=== PATIENT | female | born 1990 | race Caucasian/White ===

== ENCOUNTER 2019-11-08 05:27 | Inpatient (IN) | payer OTHER ==
[~2019-11-08] VITALS: Ht 165.1 cm; Wt 100.0 kg
[2019-11-08] MEDS ORDERED: VITAFOL-OB+DHA1 EACH PO (06:32)
--- NOTE | 2019-11-08 08:34 | PR ---
[facility] [address], [place] [address] Signed Progress Notes IP Datetime Report Generated by CPN: 11/08/2019 08:34 PROGRESS NOTES: [id number] Impression: Normal progression of labor; Reassuring heart rate Procedures: Sterile Vag Exam Plan: Continue present management; Anticipate Vaginal Delivery VITAL SIGNS: [id number] EXAM: [id number] Dilatation: 9.5 Effacement: 95 Station: -1 Uterine Contractions: q 1-2 min MEMBRANES: [id number] Amniotic Fluid Color: Clear Comments: Called to patient's room as she had quickly progressed from 3-4 cm to 9.5 cm. Pt feeling pressure and urge to push. Anesthesia had been present to evaluate for epidural but patient declining neuraxial anesthesia as she is quickly progressing. Reviewed anticipated course of labor with patient. Will prepare for delivery. Fetus A: [id number] FHR Baseline: 130 Variability: Moderate 6-25bpm Accelerations: 15X15 Decelerations: None FHR Category: Category I Presentation: Vertex Comments on Fetus A: No evidence of metabolic acidosis Fetus B: [id number] Signing Physician: Sasha Salguero DO Copies: ~ *Electronically Signed* 11/08/19833 SASHA SALGUERO DO PATIENT NAME: MONIE PINEDO PROGRESS NOTE DATE OF : [birth year] PHYSICIAN: SASHA SALGUERO DO RPT #: [id number] REPORT IS CONFIDENTIAL AND NOT TO BE RELEASED WITHOUT AUTHORIZATION
--- NOTE | 2019-11-09 10:43 | PR ---
[facility] [address] [facility] [place], [place] [address] Signed PP Progress Notes Datetime Report Generated by IZZY: 11/09/2019 10:43 SUBJECTIVE: [id number] Pain: Within normal limits Vital Signs: [id number] Vital Signs: Reviewed; Within Normal Limits EXAM: [id number] Cardiovascular: Not Done Respiratory: Not Done Abdomen/Uterus: Abnormal Lochia: Normal Vulva/Perineum: Abnormal Breasts: Not Done CVA Tenderness: Not Done Extremities: Normal Incision: Not Applicable Progress: Abnormal Exam Comments: Fundus firm, NT @ U-1. Vulva with mild swelling. 10.1/30.2, WBC 12.9, plat 175k IMPRESSION/PLAN/PROCEDURES: [id number] Impression: Normal progression; difficulties Plan: Continue present management Progress Notes: Doing well overall. Signing Physician: Alexus Cormier MD Copies: ~ *Electronically Signed* 11/09/19 1043 ALEXUS CORMIER MD PATIENT NAME: MONIE PINEDO PROGRESS NOTE DATE OF : [birth year] PHYSICIAN: ALEXUS CORMIER MD RPT #: [id number] REPORT IS CONFIDENTIAL AND NOT TO BE RELEASED WITHOUT AUTHORIZATION
--- NOTE | 2019-11-10 08:29 | PR ---
[facility] [address] [facility] [place], [place] [address] Signed PP Progress Notes Datetime Report Generated by IZZY: 11/10/2019 08:28 SUBJECTIVE: [id number] Pain: Within normal limits Pain Comments: hemorrhoidal pain Vital Signs: [id number] Vital Signs: Reviewed; Within Normal Limits EXAM: [id number] Cardiovascular: Not Done Respiratory: Not Done Abdomen/Uterus: Abnormal Lochia: Normal Vulva/Perineum: Abnormal Breasts: Not Done CVA Tenderness: Not Done Extremities: Normal Incision: Not Applicable Progress: Abnormal Exam Comments: Fundus firm, NT @ U-1. Multiple large hemorroids IMPRESSION/PLAN/PROCEDURES: [id number] Impression: Normal progression Plan: consult; Discharge Procedures: None Progress Notes: Doing well overall though still breast feeding issues. Still hemorrhoidal discomfort but icing and using warm baths. Signing Physician: Alexus Cormier MD Copies: ~ *Electronically Signed* 11/10/19827 ALEXUS CORMIER MD PATIENT NAME: MONIE PINEDO PROGRESS NOTE DATE OF : [birth year] PHYSICIAN: ALEXUS CORMIER MD RPT #: [id number] REPORT IS CONFIDENTIAL AND NOT TO BE RELEASED WITHOUT AUTHORIZATION
== END 2019-11-10 18:03 | disposition home or self-care (01) | DRG 768 ==
LOC: FBCO 05:27 → FBC 06:00
PROVIDERS: ADMIT Obstetrics & Gynecology
PROC: 10E0XZZ Delivery of Products of Conception, External Approach (ICD-10-PCS; principal; 2019-11-08)
PROC: 0DQR0ZZ Repair Anal Sphincter, Open Approach (ICD-10-PCS; 2019-11-08)
DX: O99.214 Obesity complicating childbirth (principal); Z37.0 Single live birth; E66.9 Obesity, unspecified; Z3A.39 39 weeks gestation of pregnancy; O87.2 Hemorrhoids in the puerperium; O76 Abnormality in fetal heart rate and rhythm complicating labor and delivery; O70.20 Third degree perineal laceration during delivery, unspecified; O99.89 Other specified diseases and conditions complicating pregnancy, childbirth and the puerperium; D35.2 Benign neoplasm of pituitary gland; Z88.2 Allergy status to sulfonamides; Z79.899 Other long term (current) drug therapy
CPT/HCPCS: 36415; 85027; A9270; J2590; J7121